=== PATIENT | male | born 1960 | race African-American/Black ===

== ENCOUNTER 2017-08-12 13:33 | Emergency (ER) | payer OTHER ==
--- NOTE | 2017-08-12 15:00 | RAD ---
RIGHT KNEE: Four views. HISTORY: Injury to right lower extremity. FINDINGS: No evidence of fracture. There are mild degenerative changes seen. No evidence of joint effusion. IMPRESSION: No acute abnormality. POS: [id number]
[2017-08-12] MEDS ORDERED: Bacitracin Zinc 1 Packet ONE (16:13)
== END 2017-08-12 16:11 | disposition home or self-care (01) ==
LOC: ERS 13:33
DX: S81.011A Laceration without foreign body, right knee, initial encounter (principal); F17.210 Nicotine dependence, cigarettes, uncomplicated; Z85.6 Personal history of leukemia; W29.3XXA Contact with powered garden and outdoor hand tools and machinery, initial encounter; Y93.89 Activity, other specified
CPT/HCPCS: 12002; 99406

== ENCOUNTER 2023-10-27 11:45 | Outpatient (CLI) | payer OTHER | END 2023-10-27 11:46 | LOC: PET 11:45 | PROVIDERS: ATTEND Internal Medicine | DX: R91.1 Solitary pulmonary nodule (principal); C92.01 Acute myeloblastic leukemia, in remission | CPT/HCPCS: 78815; A9552 ==

== ENCOUNTER 2024-04-10 12:57 | Outpatient (CLI) | payer OTHER ==
[2024-04-10 13:55] LABS: #Basophils 0.03 10x3/uL (0.0-0.2); #Eosinphils 0.02 10x3/uL (0.0-0.5); #Monocytes 0.42 10x3/uL (0.0-1.1); #Neutrophils 3.84 10x3/uL (1.5-8.4); %Basophils 0.4 % (0.0-2.0); %Eosinophils 0.3 % (0.0-6.0); %Lymphocytes 38.8 % (18.0-47.0); %Monocytes 5.9 % (0.0-10.0); %Neutrophils 54.3 % (40.0-75.0); Hematocrit 39.1 % (38.8-50.0); Hemoglobin 13.3 g/dL (13.5-17.5); Mean Corpuscular Hemoglobin 35.5 pg (27.0-33.0); Mean Corpuscular Volume 104.3 fL (81.2-95.1); Mean Platelet Volume 9.3 fL (7.4-10.4); Platelet Count 175 10x3/uL (150-450); RBC Distribution Width 12.6 % (11.5-14.5); Red Blood Cell (RBC) Count 3.75 10x6/uL (4.32-5.72); White Blood Cell (WBC) Count 7.1 10x3/uL (3.5-10.5)
[2024-04-10 14:07] LABS: Anion Gap 11 mmol/L (10-20); BUN (Urea Nitrogen) 24 mg/dL (8.4-25.7); Calc. Creatinine Clearance 0 mL/min (70-130); Calcium 9.5 mg/dL (7.8-10.44); Carbon Dioxide 28 mmol/L (23-31); Chloride 105 mmol/L (98-107); Estimated GFR 64; Glucose 99 mg/dL (80-115); Potassium 4.8 mmol/L (3.5-5.1); Sodium 139 mmol/L (136-145)
== END 2024-04-10 12:58 | disposition home or self-care (01) ==
LOC: LABBT 12:57
PROVIDERS: ATTEND Specialist
DX: Z01.818 Encounter for other preprocedural examination (principal); K40.90 Unilateral inguinal hernia, without obstruction or gangrene, not specified as recurrent
CPT/HCPCS: 71046; 80048; 85025; 93005; 93010